=== PATIENT | male | born 1975 | race Caucasian/White ===

== ENCOUNTER 2020-10-24 11:23 | Emergency (ER) | payer BC, OTHER ==
[2020-10-24] MEDS ORDERED: Sodium Chloride 0.9% 10 ML Syringe FLUSH PRN (11:58)
--- NOTE | 2020-10-24 12:03 | EDM.PDOC ---
ED HPI GENERAL MEDICAL PROBLEM - General Chief Complaint: Chest Pain Stated Complaint: CHEST PAIN Time Seen by Provider: 10/24/20 11:51 Source of Information: Reports: Patient, RN Notes Reviewed History Limitations: Reports: No Limitations - History of Present Illness INITIAL COMMENTS - FREE TEXT/NARRATIVE: Patient is a 45-year-old male who presents to the ER for the evaluation of his chest pain. Notes this has been present since yesterday. He states that it started last night, when he was not doing much around the house at all. He took an ibuprofen and some antacids at that time and it did not help the pain much. He does have a history of reflux or heartburn, and has been using omeprazole for this for 2 weeks, he is not noted any much difference. States that the pain is in his mid chest, and does radiate up to his neck. This is intermittent in times, and does seem to worsen when he has a change of positions, laying down, or laying on his side. He states that it does cause some shortness of breath, but has not had any other symptoms, fever/chills, cough, nausea/vomiting/diarrhea. Patient states he has been having an issue with ongoing chronic diarrhea, and does not relate an associated increase in this. He states he has never had any heart troubles. He does note that a grandfather did pass away from a heart attack when he was only 46 years old. Primary care provider is Dr. Todd. Middle Chest Pain Score (Numeric/FACES): 3 - Related Data Allergies Allergy/AdvReac Type Severity Reaction Status Date / Time No Known Allergies Allergy Verified 10/24/20 11:32 Home Meds: Home Meds FLUoxetine HCl [Fluoxetine] 30 mg PO DAILY 10/24/20 [History] Triamcinolone Acetonide [Triamcinolone Acetonide 0.1% Crm] 1 applic TOP DAILY PRN 10/24/20 [History] Past Medical History - Past Health History Medical/Surgical History: Denies Medical/Surgical History Psychiatric History: Reports: Depression Dermatologic History: Reports: Eczema - Past Surgical History HEENT Surgical History: Reports: Oral Surgery Musculoskeletal Surgical History: Reports: Other (See Below) Other Musculoskeletal Surgeries/Procedures:: right arm surgery as a child Social & Family History - Family History Family Medical History: No Pertinent Family History - Tobacco Use Tobacco Use Status *Q: Never Tobacco User - Caffeine Use Caffeine Use: Reports: None - Recreational Drug Use Recreational Drug Use: No ED ROS GENERAL - Review of Systems Review Of Systems: Comprehensive ROS is negative, except as noted in HPI. ED EXAM, GENERAL - Physical Exam Exam: See Below Exam Limited By: No Limitations General Appearance: Alert, WD/WN, No Apparent Distress Throat/Mouth: Normal Inspection, Normal Lips, Normal Teeth, Normal Gums, Normal Oropharynx, Normal Voice, No Airway Compromise Head: Atraumatic, Normocephalic Neck: Normal Inspection, Supple, Non-Tender, Full Range of Motion Respiratory/Chest: No Respiratory Distress, Lungs Clear, Normal Breath Sounds, No Accessory Muscle Use, Chest Non-Tender Cardiovascular: Normal Peripheral Pulses, Regular Rate, Rhythm, No Edema Peripheral Pulses: 2+: Radial (L), Radial (R) Extremities: Normal Inspection, Normal Capillary Refill Neurological: Alert, Oriented, Normal Cognition, No Motor/Sensory Deficits Psychiatric: Normal Affect, Normal Mood Skin Exam: Warm, Dry, Intact, Normal Color, No Rash #1 Interpretation EKG Date: 10/24/20 Time: 11:27 Rhythm: NSR Rate (Beats/Min): 96 [place]: Normal P-Wave: Present QRS: RBBB (incomplete with LAFB) ST-T: Elevated (minimal in diffuse leads) QT: Normal Comparison: NA - No Prior EKG EKG Interpretation Comments: No obvious ischemia changes noted, reviewed by myself and Dr. Simmons. Course - Vital Signs Last Recorded V/S: Last Vital Signs Temp 97.5 F 10/24/20 11:29 Pulse 95 10/24/20 11:29 Resp 16 10/24/20 11:29 BP 155/97 H 10/24/20 11:29 Pulse Ox 93 L 10/24/20 11:29 - Orders/Labs/Meds Orders: Active Orders 24 hr Category Date Time Status EKG 12 Lead [EKG Documentation Completion] [RC] ROUTINE Care 10/24/20 11:27 Active Peripheral IV Care [RC] . DIRECTED Care 10/24/20 11:58 Ordered Sodium Chloride 0.9% [Saline Flush] Med 10/24/20 11:58 Ordered 10 ml FLUSH ASDIRECTED PRN Peripheral IV Insertion Adult [OM.PC] Stat Oth 10/24/20 11:58 Ordered Medication Orders Sodium Chloride (Sodium Chloride 0.9% 10 Ml Syringe) 10 ml FLUSH ASDIRECTED PRN PRN Reason: Keep Vein Open Labs: Laboratory Tests 10/24/20 10/24/20 10/24/20 Range/Units 11:30 11:30 11:30 WBC 9.57 H (4.23-9.07) K/mm3 RBC 5.13 (4.63-6.08) M/mm3 Hgb 16.3 (13.7-17.5) gm/dl Hct 47.3 (40.1-51.0) % MCV 92.2 (79.0-92.2) fl MCH 31.8 (25.7-32.2) pg MCHC 34.5 (32.2-35.5) g/dl RDW Std Deviation 42.5 (35.1-43.9) fL Plt Count 280 (163-337) K/mm3 MPV 10.8 (9.4-12.3) fl Neut % (Auto) 71.0 H (34.0-67.9) % Lymph % (Auto) 19.6 L (21.8-53.1) % Curry % (Auto) 7.8 (5.3-12.2) % Eos % (Auto) 1.0 (0.8-7.0) Baso % (Auto) 0.4 (0.1-1.2) % Neut # (Auto) 6.78 H (1.78-5.38) K/mm3 Lymph # (Auto) 1.88 (1.32-3.57) K/mm3 Curry # (Auto) 0.75 (0.30-0.82) K/mm3 Eos # (Auto) 0.10 (0.04-0.54) K/mm3 Baso # (Auto) 0.04 (0.01-0.08) K/mm3 PT 10.0 (9.7-12.0) SECONDS INR 0.93 APTT 26.5 (21.7-31.4) SECONDS Sodium 143 (136-145) mEq/L Potassium 3.3 L (3.5-5.1) mEq/L Chloride 103 (98-107) mEq/L Carbon Dioxide 28 (21-32) mEq/L Anion Gap 15.3 H (5-15) BUN 13 (7-18) mg/dL Creatinine 1.3 (0.7-1.3) mg/dL Est Cr Clr Drug Dosing 68.69 mL/min Estimated GFR (MDRD) 59 (>60) mL/min BUN/Creatinine Ratio 10.0 L (14-18) Glucose 161 H (74-106) mg/dL Calcium 9.0 (8.5-10.1) mg/dL Magnesium 2.8 H (1.8-2.4) mg/dl Total Bilirubin 0.5 (0.2-1.0) mg/dL AST 23 (15-37) U/L ALT 41 (16-63) U/L Alkaline Phosphatase 78 (46-116) U/L Troponin I < 0.017 (0.00-0.056) ng/mL NT-Pro-B Natriuret Pep (0-125) pg/mL Total Protein 8.3 H (6.4-8.2) g/dl Albumin 3.9 (3.4-5.0) g/dl Globulin 4.4 gm/dL Albumin/Globulin Ratio 0.9 L (1-2) 10/24/20 Range/Units 11:30 WBC (4.23-9.07) K/mm3 RBC (4.63-6.08) M/mm3 Hgb (13.7-17.5) gm/dl Hct (40.1-51.0) % MCV (79.0-92.2) fl MCH (25.7-32.2) pg MCHC (32.2-35.5) g/dl RDW Std Deviation (35.1-43.9) fL Plt Count (163-337) K/mm3 MPV (9.4-12.3) fl Neut % (Auto) (34.0-67.9) % Lymph % (Auto) (21.8-53.1) % Curry % (Auto) (5.3-12.2) % Eos % (Auto) (0.8-7.0) Baso % (Auto) (0.1-1.2) % Neut # (Auto) (1.78-5.38) K/mm3 Lymph # (Auto) (1.32-3.57) K/mm3 Curry # (Auto) (0.30-0.82) K/mm3 Eos # (Auto) (0.04-0.54) K/mm3 Baso # (Auto) (0.01-0.08) K/mm3 PT (9.7-12.0) SECONDS INR APTT (21.7-31.4) SECONDS Sodium (136-145) mEq/L Potassium (3.5-5.1) mEq/L Chloride (98-107) mEq/L Carbon Dioxide (21-32) mEq/L Anion Gap (5-15) BUN (7-18) mg/dL Creatinine (0.7-1.3) mg/dL Est Cr Clr Drug Dosing mL/min Estimated GFR (MDRD) (>60) mL/min BUN/Creatinine Ratio (14-18) Glucose (74-106) mg/dL Calcium (8.5-10.1) mg/dL Magnesium (1.8-2.4) mg/dl Total Bilirubin (0.2-1.0) mg/dL AST (15-37) U/L ALT (16-63) U/L Alkaline Phosphatase (46-116) U/L Troponin I (0.00-0.056) ng/mL NT-Pro-B Natriuret Pep 81 (0-125) pg/mL Total Protein (6.4-8.2) g/dl Albumin (3.4-5.0) g/dl Globulin gm/dL Albumin/Globulin Ratio (1-2) Meds: Medications Generic Name Dose Route Start Last Admin Trade Name Freq PRN Reason Stop Dose Admin Sodium Chloride 10 ml 10/24/20 11:58 Sodium Chloride 0.9% 10 Ml Syringe FLUSH ASDIRECTED PRN Keep Vein Open - Re-Assessments/Exams Free Text/Narrative Re-Assessment/Exam: 10/24/20 12:01 Patient presents to the ER for chest pain, we will get EKG, chest x-ray, basic labs for further evaluation. Does sound somewhat like pleurisy in nature due to the position changes making the pain worse. 10/24/20 12:36 Laboratory evaluation demonstrates no focal changes, troponin undetectably low, potassium is mildly low at 3.3, magnesium is slightly elevated at 2.8. Again I do believe the patient is probably suffering more from a pleuritis or pleurisy in nature. We will have him do ibuprofen 3 or 4 times a day, and follow-up with Rodger Todd, sometime this week for further evaluation. I will instruct him to take his Prilosec, until he can get in with Dr. Todd for further evaluation. Departure - Departure Time of Disposition: 12:36 Disposition: Home, Self-Care 01 Condition: Good Clinical Impression: Pleuritic chest pain Instructions: Nonspecific Chest Pain, Adult, [id number] Referrals: Rodger Kidd MD [Primary Care Provider] - Forms: ED Department Discharge Additional Instructions: You were evaluated in the ER today for your chest discomfort/chest pain. Laboratory evaluation, chest x-ray and EKG done at today's visit demonstrate that you are not having a heart attack at today's visit. Your chest pain is most likely due to inflammation or irritation of the pleura, which is a lining around the lungs, causing you some chest discomfort. Management of this will be ibuprofen, 600 mg every 6 hours for roughly a week, or until the chest pain is getting better. Please continue to take the omeprazole as you are for your heartburn, and follow-up with your regular care provider, for ER follow-up visit and ongoing medical management, either sometime later this week or early next week. Please return to the ER at any time if symptoms change or worsen. Sepsis Event Note (ED) - Evaluation Sepsis Screening Result: No Definite Risk - Focused Exam Vital Signs: Vital Signs Temp Pulse Resp BP Pulse Ox 10/24/20 11:29 97.5 F 95 16 155/97 H 93 L - My Orders Last 24 Hours: My Active Orders 10/24/20 11:27 EKG 12 Lead [EKG Documentation Completion] [RC] ROUTINE 10/24/20 11:58 Peripheral IV Care [RC] . DIRECTED Sodium Chloride 0.9% [Saline Flush] 10 ml FLUSH ASDIRECTED PRN Peripheral IV Insertion Adult [OM.PC] Stat - Assessment/Plan Last 24 Hours: My Active Orders 10/24/20 11:27 EKG 12 Lead [EKG Documentation Completion] [RC] ROUTINE 10/24/20 11:58 Peripheral IV Care [RC] . DIRECTED Sodium Chloride 0.9% [Saline Flush] 10 ml FLUSH ASDIRECTED PRN Peripheral IV Insertion Adult [OM.PC] Stat
--- NOTE | 2020-10-24 12:21 | CR ---
Chest: 2 views of the chest are obtained. Comparison: No previous chest x-ray is available. Small nodule is noted within the right upper lung. This appears fairly dense and most likely represents a granuloma. Lungs otherwise are clear with no acute parenchymal change. Heart size and mediastinum are normal. No acute osseous abnormality is appreciated. Impression: 1. Nodule which is fairly dense and most likely represents a granuloma within the upper right lung. 2. Nothing acute is otherwise seen on 2 view chest x-ray. Diagnostic code #2
[2020-10-24 13:34] VITALS: BP 137/104; PULSE 77
== END 2020-10-24 13:16 | disposition home or self-care (01) ==
LOC: JD.ED 11:23
DX: R07.81 Pleurodynia (principal); I45.10 Unspecified right bundle-branch block
CPT/HCPCS: 36415; 71046; 71046-26; 80053; 83735; 83880; 84484; 85025; 85610; 85730; 93005; 93010; 99283; 99285-25

== ENCOUNTER 2021-04-19 12:01 | Emergency (ER) | payer BC ==
[2021-04-19 12:13] VITALS: BP 122/72; PULSE 68
[2021-04-19] MEDS ORDERED: Sodium Chloride 0.9% 10 ML Syringe FLUSH PRN (12:36)
--- NOTE | 2021-04-19 14:10 | CR ---
Chest: Portable view of the chest was obtained. Comparison: Prior chest x-ray of 10/24/20. Small nodule is noted within the right midlung which is stable from prior exam. Scattered parenchymal change is noted within both lungs. Heart size and mediastinum are within normal limits. Bony structures show nothing acute. Impression: 1. Stable nodule within the right mid chest. 2. Patchy areas of increased density compatible with moderately severe COVID pneumonia. Diagnostic code #3
--- NOTE | 2021-04-19 14:30 | EDM.PDOC ---
ED HPI GENERAL MEDICAL PROBLEM - General Chief Complaint: Respiratory Problem Stated Complaint: [facility] Time Seen by Provider: 04/19/21 12:13 Source of Information: Reports: Patient, RN Notes Reviewed History Limitations: Reports: No Limitations - History of Present Illness INITIAL COMMENTS - FREE TEXT/NARRATIVE: Patient is a 85-year-old male presenting to the emergency department with complaints of worsening of Covid symptoms. He reports that he has had symptoms of Covid for 2 weeks, however the last few days his cough and shortness of breath have worsened. He complained of cough, migraines, body aches, and nausea. He was never officially tested for Covid, however he was seen in the clinic yesterday and started on treatment for Covid pneumonia with Medrol Dosepak and albuterol. He has been monitoring his oxygen saturations at home and states that they have been around 93%. Prior to coming to the ER, he was walking to the bathroom and was unable to catch his breath due to coughing, therefore he summoned EMS. Patient denies any chronic underlying medical conditions. On arrival to ER, patient was on 10 L by simple mask satting 92%, however when o xygen was removed he was 86% on room air. Is saturating in the low 90s on 2 L by nasal cannula. - Related Data Allergies Allergy/AdvReac Type Severity Reaction Status Date / Time No Known Allergies Allergy Verified 04/19/21 12:13 Home Meds: Home Meds FLUoxetine HCl [Fluoxetine] 30 mg PO DAILY 10/24/20 [History] Triamcinolone Acetonide [Triamcinolone Acetonide 0.1% Crm] 1 applic TOP DAILY PRN 10/24/20 [History] Albuterol Sulfate [Proventil Hfa] 6.7 gm IH Q4HR PRN 04/19/21 [History] dexAMETHasone [Decadron] 6 mg PO DAILY 5 Days #5 tablet 04/19/21 [Rx] methylPREDNISolone [Medrol Dose Pack] 4 mg PO ASDIRECTED 04/19/21 [History] Past Medical History - Past Health History Medical/Surgical History: Denies Medical/Surgical History Other HEENT History: lasik surgery Neurological History: Reports: Migraines Psychiatric History: Reports: Depression Dermatologic History: Reports: Eczema - Past Surgical History HEENT Surgical History: Reports: Oral Surgery Musculoskeletal Surgical History: Reports: Other (See Below) Other Musculoskeletal Surgeries/Procedures:: right arm surgery as a child, broken Social & Family History - Family History Family Medical History: No Pertinent Family History - Tobacco Use Tobacco Use Status *Q: Never Tobacco User - Caffeine Use Caffeine Use: Reports: Soda, Tea - Recreational Drug Use Recreational Drug Use: No ED ROS GENERAL - Review of Systems Review Of Systems: See Below Constitutional: Reports: Fever, Chills, Fatigue, Decreased Appetite HEENT: Reports: No Symptoms Respiratory: Reports: Shortness of Breath, Cough Cardiovascular: Reports: Dyspnea on Exertion. Denies: Lightheadedness, Syncope Endocrine: Reports: No Symptoms GI/Abdominal: Reports: Nausea. Denies: Vomiting : Reports: No Symptoms Musculoskeletal: Reports: Other (Body aches) Skin: Reports: No Symptoms Neurological: Reports: Headache Psychiatric: Reports: No Symptoms Hematologic/Lymphatic: Reports: No Symptoms Immunologic: Reports: No Symptoms ED EXAM, GENERAL - Physical Exam Exam: See Below Exam Limited By: No Limitations General Appearance: Alert, WD/WN, No Apparent Distress Throat/Mouth: Normal Inspection, Normal Lips, Normal Teeth, Normal Gums, Normal Oropharynx, Normal Voice, No Airway Compromise Respiratory/Chest: No Respiratory Distress, Normal Breath Sounds, No Accessory Muscle Use, Chest Non-Tender, Crackles (Faint scattered crackles) Cardiovascular: Normal Peripheral Pulses, Regular Rate, Rhythm, No Edema, No Gallop, No JVD, No Murmur, No Rub GI/Abdominal: Normal Bowel Sounds, Soft, Non-Tender, No Organomegaly, No Distention, No Abnormal Bruit, No Mass Neurological: Alert, Oriented, CN II-XII Intact, Normal Cognition, Normal Gait, Normal Reflexes, No Motor/Sensory Deficits Psychiatric: Normal Affect, Normal Mood Skin Exam: Warm, Dry, Intact, Normal Color, No Rash #1 Interpretation EKG Date: 04/19/21 Time: 13:33 Rhythm: NSR Rate (Beats/Min): 58 [place]: LAD-Left [place] Deviation P-Wave: Present QRS: Normal ST-T: Normal QT: Normal Course - Vital Signs Last Recorded V/S: Last Vital Signs Temp 96.7 F L 04/19/21 12:07 Pulse 68 04/19/21 12:07 Resp 20 04/19/21 12:07 BP 122/72 04/19/21 12:07 Pulse Ox 86 L 04/19/21 13:06 - Orders/Labs/Meds Labs: Laboratory Tests 04/19/21 04/19/21 04/19/21 Range/Units 12:29 12:54 12:54 WBC 5.75 (4.23-9.07) K/mm3 RBC 4.88 (4.63-6.08) M/mm3 Hgb 15.3 (13.7-17.5) gm/dl Hct 44.5 (40.1-51.0) % MCV 91.2 (79.0-92.2) fl MCH 31.4 (25.7-32.2) pg MCHC 34.4 (32.2-35.5) g/dl RDW Std Deviation 42.7 (35.1-43.9) fL Plt Count 241 (163-337) K/mm3 MPV 10.8 (9.4-12.3) fl Neut % (Auto) 86.8 H (34.0-67.9) % Lymph % (Auto) 10.3 L (21.8-53.1) % [place] % (Auto) 2.4 L (5.3-12.2) % Eos % (Auto) 0 L (0.8-7.0) Baso % (Auto) 0.3 (0.1-1.2) % Neut # (Auto) 4.99 (1.78-5.38) K/mm3 Lymph # (Auto) 0.59 L (1.32-3.57) K/mm3 [place] # (Auto) 0.14 L (0.30-0.82) K/mm3 Eos # (Auto) 0.00 L (0.04-0.54) K/mm3 Baso # (Auto) 0.02 (0.01-0.08) K/mm3 D-Dimer, Quantitative 0.51 H (0.19-0.50) mg/L Sodium (136-145) mEq/L Potassium (3.5-5.1) mEq/L Chloride (98-107) mEq/L Carbon Dioxide (21-32) mEq/L Anion Gap (5-15) BUN (7-18) mg/dL Creatinine (0.7-1.3) mg/dL Est Cr Clr Drug Dosing mL/min Estimated GFR (MDRD) (>60) mL/min BUN/Creatinine Ratio (14-18) Glucose (70-99) mg/dL Calcium (8.5-10.1) mg/dL Total Bilirubin (0.2-1.0) mg/dL AST (15-37) U/L ALT (16-63) U/L Alkaline Phosphatase (46-116) U/L Troponin I (0.00-0.056) ng/mL C-Reactive Protein (<1.0) mg/dL NT-Pro-B Natriuret Pep (0-125) pg/mL Total Protein (6.4-8.2) g/dl Albumin (3.4-5.0) g/dl Globulin gm/dL Albumin/Globulin Ratio (1-2) SARS-CoV-2 RNA (JASSON) Positive H (NEGATIVE) 04/19/21 04/19/21 Range/Units 12:54 12:54 WBC (4.23-9.07) K/mm3 RBC (4.63-6.08) M/mm3 Hgb (13.7-17.5) gm/dl Hct (40.1-51.0) % MCV (79.0-92.2) fl MCH (25.7-32.2) pg MCHC (32.2-35.5) g/dl RDW Std Deviation (35.1-43.9) fL Plt Count (163-337) K/mm3 MPV (9.4-12.3) fl Neut % (Auto) (34.0-67.9) % Lymph % (Auto) (21.8-53.1) % [place] % (Auto) (5.3-12.2) % Eos % (Auto) (0.8-7.0) Baso % (Auto) (0.1-1.2) % Neut # (Auto) (1.78-5.38) K/mm3 Lymph # (Auto) (1.32-3.57) K/mm3 [place]ett # (Auto) (0.30-0.82) K/mm3 Eos # (Auto) (0.04-0.54) K/mm3 Baso # (Auto) (0.01-0.08) K/mm3 D-Dimer, Quantitative (0.19-0.50) mg/L Sodium 140 (136-145) mEq/L Potassium 3.8 (3.5-5.1) mEq/L Chloride 102 (98-107) mEq/L Carbon Dioxide 26 (21-32) mEq/L Anion Gap 15.8 H (5-15) BUN 24 H (7-18) mg/dL Creatinine 1.2 (0.7-1.3) mg/dL Est Cr Clr Drug Dosing 74.42 mL/min Estimated GFR (MDRD) > 60 (>60) mL/min BUN/Creatinine Ratio 20.0 H (14-18) Glucose 166 H (70-99) mg/dL Calcium 8.6 (8.5-10.1) mg/dL Total Bilirubin 0.5 (0.2-1.0) mg/dL AST 37 (15-37) U/L ALT 35 (16-63) U/L Alkaline Phosphatase 69 (46-116) U/L Troponin I < 0.017 (0.00-0.056) ng/mL C-Reactive Protein 10.7 H* (<1.0) mg/dL NT-Pro-B Natriuret Pep 49 (0-125) pg/mL Total Protein 7.7 (6.4-8.2) g/dl Albumin 2.8 L (3.4-5.0) g/dl Globulin 4.9 gm/dL Albumin/Globulin Ratio 0.6 L (1-2) SARS-CoV-2 RNA (JASSON) (NEGATIVE) Meds: Medications Discontinued Medications Generic Name Dose Route Start Last Admin Trade Name Freq PRN Reason Stop Dose Admin Sodium Chloride 10 ml 04/19/21 12:36 04/19/21 12:52 Sodium Chloride 0.9% 10 Ml Syringe FLUSH 10 ml ASDIRECTED PRN Administration Keep Vein Open - Re-Assessments/Exams Free Text/Narrative Re-Assessment/Exam: Patient is a 45-year-old male presenting to the emergency department for worsening of Covid symptoms. Reports he has been ill for approximately 2 weeks, however the last few days his cough and shortness of breath has worsened. He was seen in the clinic yesterday and diagnosed with Covid pneumonia and started on albuterol and Medrol Dosepak. Today he was having difficulty catching his breath so he called the ambulance. He was found to be 86% on room air. He is currently on 2 L saturating in the mid to low 90s. On exam, he has faint, scattered crackles throughout his lung melendrez. I have ordered blood work, chest x-ray, EKG. 04/19/21 14:53 Hematology significant for D-dimer minimally elevated 0.51, and a gap 15.8, glucose 166, CRP 10.7. Troponin is undetectably low. EKG shows sinus rhythm at 58. Chest x-ray shows moderately severe Covid pneumonia. Unfortunate do not have any beds available in our facility or an outlying facilities [facility]. Discussed the option of contacting the [facility] to look for available beds at outlying facilities, however we cannot predict where this may be. Patient has opted to go home on oxygen. Patient will be changed to dexamethasone and advised to discontinue Medrol Dosepak. He will be sent home with supplemental O2. Discussed that if he is requiring more than 4 L of oxygen to keep his saturations above 92%, he should return to ER. He verbalized understanding of this. Discharge instructions as documented. Departure - Departure Time of Disposition: 14:49 Disposition: Home, Self-Care 01 Condition: Fair Clinical Impression: Pneumonia due to COVID-19 virus - Discharge Information *PRESCRIPTION DRUG MONITORING PROGRAM REVIEWED*: No *COPY OF PRESCRIPTION DRUG MONITORING REPORT IN PATIENT BOBBY: No Prescriptions: dexAMETHasone [Decadron] 6 mg PO DAILY 5 Days #5 tablet Instructions: COVID-19 Referrals: Rodger Kidd MD [Primary Care Provider] - Forms: ED Department Discharge Additional Instructions: Stop the Medrol Dosepak previously prescribed. Take dexamethasone as prescribed. Continue to use the albuterol inhaler as needed. Use Tylenol and ibuprofen as needed for fever and discomfort. Ensure you are taking an adequate amount of fluid. Wear home oxygen. You may titrate between 1 and 4 L to keep her saturation above 92%. If you are requiring more than 4 L of oxygen or you experience any other new or worsening symptoms of concern, please return to the emergency department.
== END 2021-04-19 16:20 | disposition home or self-care (01) ==
LOC: JD.ED 12:01
DX: U07.1 COVID-19 (principal); J12.82 Pneumonia due to coronavirus disease 2019
CPT/HCPCS: 36415; 71045; 71045-26; 80053; 83880; 84484; 85025; 85379; 86140; 93005; 99284-25; U0002